=== PATIENT | male | born 1955 | race Caucasian/White ===

== ENCOUNTER 2022-03-25 13:35 | Emergency (ER) | payer OTHER, MEDICAID ==
[~2022-03-25] VITALS: Ht 175.3 cm; Wt 167.8 kg
[2022-03-25 13:47] VITALS: BP_SYST 145
--- NOTE | 2022-03-25 14:24 | NUR ---
Placed in room 05 . Placed on conveyor monitor, blood pressure machine and pulse oximeter. To gown for exam. Side rails up. Report given to LIMA MARIN.
--- NOTE | 2022-03-25 14:25 | NUR ---
DR. JOHNSON AT BEDSIDE TO ASSESS PT.
[2022-03-25 14:53] LABS: BASOPHILS # (AUTO) 0.1 K/uL (0.0-0.2); EOSINOPHILS # (AUTO) 0.2 K/uL (0.0-0.4); HEMATOCRIT 40.4 % (36-54); HEMOGLOBIN 13.7 g/dL (14.0-18.0); LYMPHOCYTES # (AUTO) 2.1 K/uL (1.0-5.5); LYMPHOCYTES % (AUTO) 25.4 % (20.5-51.5); MEAN CORPUSCULAR HEMOGLOBIN 32 pg (27-31); MEAN CORPUSCULAR HGB CONC 34 % (32-36); MEAN CORPUSCULAR VOLUME 94 fL (79.0-98.0); MONOCYTES # (AUTO) 0.5 K/uL (0.0-1.0); MONOCYTES % (AUTO) 6.4 % (1.7-9.3); NEUTROPHILS # (AUTO) 5.4 K/uL (1.8-7.7); NEUTROPHILS % (AUTO) 64.2 % (40.0-70.0); PLATELET COUNT (AUTO) 195 K/uL (130-430); RED BLOOD CELL COUNT(AUTO) 4.32 MIL/uL (4.2-6.2); RED CELL DISTRIBUTION WIDTH 14.2 % (9.0-15.0); WHITE BLOOD COUNT (AUTO) 8.4 K/uL (4.8-10.8)
--- NOTE | 2022-03-25 15:05 | NUR ---
FLU, COVID, STREP OBTAINED AND TAKEN TO LAB, EKG COMPLETED. PT RECEIVING CXR AT THIS TIME.
[2022-03-25 15:07] LABS: CREATININE 1.57 mg/dL (0.55-1.30)
[2022-03-25 15:13] LABS: ALBUMIN 3.4 g/dL (3.4-4.8); TOTAL BILIRUBIN 0.4 mg/dL (0.0-1.0)
[2022-03-25 16:27] LABS: STREPTOCOCCUS A SCREEN (RAPID) NEGATIVE (NEGATIVE)
[2022-03-25] MEDS ORDERED: IBUPROFEN 800 MG TABLET PO ONE (17:15)
--- NOTE | 2022-03-25 17:15 | NUR ---
PT ENDORSED TO LIMA ROB.
--- NOTE | 2022-03-25 18:49 | NUR ---
DINNER TRAY PROVIDED TO PT
--- NOTE | 2022-03-25 19:02 | NUR ---
PATIENT MOVED TO [place] AWAITING BLS TRANSPORT TO DISCHARGE TO [facility].
--- NOTE | 2022-03-25 19:40 | NUR ---
PATIENT RESTING QUIETLY IN [facility]. PATIENT AWARE THERE IS NO BLS TRANSPORT AT THIS TIME AND WILL ATTEMPT TO BE ARRANGED AGAIN IN THE MORNING.
--- NOTE | 2022-03-26 00:48 | NUR ---
PATIENT ASLEEP IN ER [facility]. CHEST RISE AND FALL NOTED.
--- NOTE | 2022-03-26 03:24 | NUR ---
Patient awake sitting in [facility]. voiced no complaints or needs. patient awaiting discharge.
--- NOTE | 2022-03-26 03:30 | NUR ---
report given to LIMA medina
--- NOTE | 2022-03-26 03:31 | NUR ---
PT resting in bed, awake. Pt provided water as requested. Repositioned for comfort. VSS. Pt updated on transportation status. Safety precautions in place.
[2022-03-26 05:30] VITALS: BP_SYST 121
--- NOTE | 2022-03-26 07:16 | NUR ---
REPORT GIVEN TO URIEL AMATO TO ASSUME CARE.
--- NOTE | 2022-03-26 11:00 | NUR ---
Patient given written and verbal discharge instructions and verbalizes understanding. ER MD discussed with patient the results and treatment provided. Patient in stable condition. ID arm band removed. IV catheter removed intact and dressing applied, no active bleeding. Rx of [] given. Patient educated on pain management and to follow up with PMD. Pain Scale 0. Opportunity for questions provided and answered. Medication side effect fact sheet provided.
== END 2022-03-26 11:00 | disposition home or self-care (01) ==
LOC: SED 13:35
DX: J02.8 Acute pharyngitis due to other specified organisms (principal); B97.89 Other viral agents as the cause of diseases classified elsewhere; Z20.822 Contact with and (suspected) exposure to COVID-19
CPT/HCPCS: 36415; 71045; 80053; 85025; 86403; 87081; 93005; 99285